=== PATIENT | female | born 1970 | race Caucasian/White ===

== ENCOUNTER 2019-01-31 05:09 | Inpatient (IN) | payer OTHER ==
[~2019-01-31] VITALS: Ht 162.6 cm; Wt 104.3 kg
[2019-01-31] MEDS ORDERED: PROVIGIL PO (05:16)
[2019-01-31] MEDS ORDERED: BENAZEPRIL PO (05:17)
[2019-01-31] MEDS ORDERED: LEVOTHYROXINE PO (05:17)
[2019-01-31] MEDS ORDERED: OXYCODONE PO (05:17)
[2019-01-31 05:18] VITALS: BP 92/66
[2019-01-31 05:25] LABS: URINE BILIRUBIN NEGATIVE (Negative); URINE BLOOD 3+ (Negative); URINE CLARITY CLEAR; URINE COLOR YELLOW; URINE GLUCOSE-RANDOM NEGATIVE (Negative); URINE KETONES NEGATIVE (Negative); URINE LEUKOCYTES-REFLEX NEGATIVE (Negative); URINE NITRITE-REFLEX NEGATIVE (Negative); URINE PROTEIN NEGATIVE (Negative); URINE SPECIFIC GRAVITY 1.015 (1.005-1.030); URINE UROBILINOGEN 0.2 E.U./dl (0.2-1.0)
[2019-01-31 05:42] LABS: ABSOLUTE EOSINOPHILS 0.1 thou/uL (0.0-0.7); ABSOLUTE LYMPHOCYTES 1.1 thou/uL (0.8-5.3); ABSOLUTE MONOCYTES 0.5 thou/uL (0.0-1.2); BASOPHILS 0.5 %; EOSINOPHILS 0.7 %; HEMATOCRIT 39.5 % (37.0-47.0); LYMPHOCYTES 14.8 %; MCH 31.6 pg (26.0-34.0); MCHC 32.8 g/dL (28.0-37.0); MCV 96.3 fL (80.0-100.0); MONOCYTES 5.9 %; MPV 8.5 fl. (7.2-11.1); NUCLEATED RBCS 0 /100WBC; PLATELET COUNT* 214 thou/uL (150-400); POLYS 78.1 %; RBC 4.11 mil/uL (4.20-5.00); RDW-CV 13.5 % (10.5-14.5); WBC 7.6 thou/uL (4.0-11.0)
[2019-01-31 05:50] LABS: BACTERIA-REFLEX 1-9 Few /HPF (None Seen); CASTS None Seen /LPF (None Seen); CRYSTALS None Seen /LPF (None Seen); MUCUS 0-3 Light strn/LPF (None Seen); SQUAMOUS 0-3 Few /LPF (0-3); URINE RBC 3-10 Few /HPF (0-2); URINE WBC-REFLEX 0-5 Rare /HPF (0-5)
[2019-01-31 05:58] LABS: CALCIUM 8.9 mg/dL (8.5-10.1); CREATININE 0.9 mg/dL (0.6-1.3); POTASSIUM 4.1 mmol/L (3.5-5.1)
[2019-01-31 06:01] LABS: ALBUMIN 3.8 g/dL (3.4-5.0); TOTAL BILIRUBIN 0.3 mg/dL (<0.1-1.0); TOTAL PROTEIN 7.3 g/dL (6.4-8.2)
[2019-01-31 08:40] VITALS: BP 140/72
[2019-01-31 09:30] VITALS: BP 151/93
[2019-01-31] MEDS ORDERED: VALIUM5 MG PO (10:19)
--- NOTE | 2019-01-31 18:52 | NUR ---
PATIENT ARRIVED TO UNIT AT 0915 FROM ED. ADMISSION HISTORY AND ASSESSMENT COMPLETED AND CHARTED. VSS ON ROOM AIR. PAIN HAS BEEN MANAGED WITH ORAL AND IV MEDICATIONS. NO COMPLAINTS OF NAUSEA THIS SHIFT. FLUIDS AND ANTIBIOTICS INFUSED ORDERED. STRAINING URINE FOR STONE. PATIENT IS UP AD MINE IN THE ROOM. UROLOGY HAS SEEN PATIENT AND WILL ATTEMPT TO GET HER ON THE SCHEDULE TOMORROW FOR A CYSTO. I&0 RECORDED CHARTED. PATIENT VOIDING YELLOW URINE WITHOUT DIFFICULTY. HOURLY ROUNDS COMPLETED. CALL LIGHT WITHIN REACH. WILL CONTINUE TO MONITOR.
[2019-01-31 20:40] VITALS: BP 152/81
--- NOTE | 2019-02-01 06:35 | NUR ---
PATIENT HAS SLEPT OFF AND ON DURING THE NIGHT. VSS ON RA. PAIN CONTROLLED WITH ORAL AND IV PAIN MEDICATIONS. PATIENT HAS REMAINED NPO SINCE MIDNIGHT. IV IN RIGHT AC-/ NS @ 125ML/HR. PATIENT INSTRUCTED TO USE CALL LIGHT WHEN NEEDING ASSISTANCE. HOURLY ROUNDS MADE. WILL CONTINUE WITH PLAN OF CARE AND NURSING TO MONITOR.
[2019-02-01 07:35] VITALS: BP 146/79
[2019-02-01 13:43] VITALS: BP 146/79
--- NOTE | 2019-02-01 13:59 | NUR ---
SURGERY GETTING READY TO GET PT.FOR CYSTO. SHE WAS ALERT AND ORIENTED. STATED SHE LIVES IN [place] WITH HER PARENTS. SHE IS INDEPENDENT. WORKS, USES NO DME. IS DEPENDENT WITH EVERYTHING. WORKS OUTSIDE THE HOME. SHOULD HAVE NO DISCHARGE NEEDS.
--- NOTE | 2019-02-01 16:32 | EKG ---
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
--- NOTE | 2019-02-01 18:07 | NUR ---
PT RETURNED FROM SURGERY. PT HAS STRING TAPED TO ABD TO SELF REMOVE STENT IN 10 DAYS. ORDER WRITTEN BY UROLOGY. PT C/O PAIN, MEDS GUIVEN PRIOR TO TRANSFER. FALL RISK PRECAUTIONS IN PLACE. HOURLY ROUNDING COMPLETED. WILL CONTINUE TO MONITOR.
[2019-02-01 18:28] VITALS: BP 149/71
[2019-02-01 19:13] LABS: CALCIUM 8.8 mg/dL (8.5-10.1); CREATININE 0.9 mg/dL (0.6-1.3)
[2019-02-01 20:50] VITALS: BP 116/54
[2019-02-02] VITALS: BP 120/64
[2019-02-02 04:00] VITALS: BP 180/90
[2019-02-02 05:34] LABS: ABSOLUTE BASOPHILS 0.1 thou/uL (0.0-0.2); ABSOLUTE MONOCYTES 0.7 thou/uL (0.0-1.2); ABSOLUTE NEUTROPHILS 9.1 thou/uL (1.6-8.1); BASOPHILS 0.5 %; HEMATOCRIT 37.2 % (37.0-47.0); HEMOGLOBIN 12.4 gm/dL (12.0-15.0); LYMPHOCYTES 9.6 %; MCH 32.3 pg (26.0-34.0); MCHC 33.3 g/dL (28.0-37.0); MCV 97.2 fL (80.0-100.0); MONOCYTES 6.4 %; MPV 8.4 fl. (7.2-11.1); NUCLEATED RBCS 0 /100WBC; PLATELET COUNT* 228 thou/uL (150-400); POLYS 83.5 %; RBC 3.82 mil/uL (4.20-5.00); RDW-CV 14.1 % (10.5-14.5); WBC 10.9 thou/uL (4.0-11.0)
[2019-02-02 05:51] LABS: CALCIUM 8.7 mg/dL (8.5-10.1); CREATININE 0.9 mg/dL (0.6-1.3)
--- NOTE | 2019-02-02 06:34 | NUR ---
PATIENT HAS SLEPT WELL THROUGHOUT THE NIGHT. VSS ON RA. MEDICATIONS GIVEN ORDERED AND CHARTED. ASSESSMENT CHARTED. IV IN RIGHT FOREARM-1/2 NS @ 125ML/HR. PATIENT VOIDING WITHOUT ANY ISSUES. PATIENT INSTRUCTED TO USE CALL LIGHT WHEN NEEDING ASSISTANCE. HOURLY ROUNDS MADE. WILL CONTINUE WITH PLAN OF CARE AND NURSING TO MONITOR.
[2019-02-02 07:15] VITALS: BP 143/84
[2019-02-02 09:22] VITALS: BP 143/84
[2019-02-02] MEDS ORDERED: NORCO 5-325 TA1 EAC1 PO (10:08)
[2019-02-02] MEDS ORDERED: OXYBUTYNIN 5 MG5 M2 PO (10:09)
[2019-02-02] MEDS ORDERED: PHENAZOPYRIDIN200 M2 PO (10:10)
[2019-02-02] MEDS ORDERED: CIPRO500 MG PO (10:11)
[2019-02-02] MEDS ORDERED: FLOMAX0.4 MG PO (10:11)
[2019-02-02 10:15] VITALS: BP 143/84
--- NOTE | 2019-02-02 11:11 | NUR ---
PT GIVEN DISCHARGE INFORMATION, CARE NOTES, AND PRESCRIPTIONS. PT REFUSED HYDROCODONE PRESCRIPTION. PT GIVEN INSTRUCIOTN TO REMOVE STENT. FALL RISK PRECAUTIONS IN PLACE. HOURLY ROUNDING COMPLETED. IV REMOVED. PT LEFT VIA WHEELCHAIR WITH NURSING STAFF TO HOME.
[2019-02-02 11:12] VITALS: BP 143/84
== END 2019-02-02 11:12 | disposition home or self-care (01) | DRG 661 ==
LOC: M.ERS 05:09 → M.TBA-ER 06:53 → M.ORTHSURG 06:53 → M.ERS 08:41 → M.ORTHSURG 08:45
PROVIDERS: Internal Medicine; Personal Emergency Response Attendant; Urology; ADMIT Internal Medicine
PROC: 0TC68ZZ Extirpation of Matter from Right Ureter, Via Natural or Artificial Opening Endoscopic (ICD-10-PCS; principal; 2019-02-01)
PROC: 0T768DZ Dilation of Right Ureter with Intraluminal Device, Via Natural or Artificial Opening Endoscopic (ICD-10-PCS; principal; 2019-02-01)
PROC: BT1D1ZZ Fluoroscopy of Right Kidney, Ureter and Bladder using Low Osmolar Contrast (ICD-10-PCS; principal; 2019-02-01)
DX: N13.2 Hydronephrosis with renal and ureteral calculous obstruction (principal); E66.01 Morbid (severe) obesity due to excess calories; G47.33 Obstructive sleep apnea (adult) (pediatric); E03.9 Hypothyroidism, unspecified; M48.00 Spinal stenosis, site unspecified; I10 Essential (primary) hypertension; Z85.3 Personal history of malignant neoplasm of breast; Z90.710 Acquired absence of both cervix and uterus; Z68.39 Body mass index [BMI] 39.0-39.9, adult; Z82.49 Family history of ischemic heart disease and other diseases of the circulatory system